=== PATIENT | male | born 1945 | race Hispanic/Latino ===

== ENCOUNTER 2017-11-15 14:40 | Emergency (ER) | payer MEDICARE, BC ==
[2017-11-15 15:54] VITALS: RESP 18; TEMP 98; O2SAT 95
[2017-11-15 16:11] VITALS: BMI 36.8
--- NOTE | 2017-11-15 16:38 | ED PDOC ---
Arrival/HPI - General Chief Complaint: Shortness Of Breath Time Seen by Provider: 11/15/17 15:50 Historian: Patient - History of Present Illness Narrative History of Present Illness (Text): 11/15/17 15:50 Fernando Harrington is a 72 year old male, whose past medical history includes COPD, who presents to the emergency department complaining of shortness of breath for a few days. Patient notes that symptoms are consistent with prior COPD episodes and experiences associated URI symptoms including cough, rhinorrhea, and subjective fever. Patient reports using his BiPAP and nebulizer last night to little relief. Patient denies any chest pain or any other complaints at this time. Time/Duration: 24 hours Symptom Onset: Gradual Symptom Course: Unchanged Activities at Onset: Light Context: Home Past Medical History - Provider Review Nursing Documentation Reviewed: Yes - Infectious Disease Hx of Infectious Diseases: None - Tetanus Immunization Tetanus Immunization: Up to Date - Cardiac Hx Pacemaker: No - Pulmonary Hx Asthma: Yes Hx Chronic Obstructive Pulmonary Disease (COPD): Yes Hx Sleep Apnea: Yes (uses c pap at home) - Neurological Hx Paralysis: No - HEENT Hx HEENT Disorder: No - Renal Hx Renal Disorder: No - Endocrine/Metabolic Hx Diabetes Mellitus Type 1: Yes (borderline DM) Hx Diabetes Mellitus Type 2: Yes (borderline DM) - Hematological/Oncological Hx Blood Transfusions: Yes (MANY YRS AGO) Hx Blood Transfusion Reaction: No Hx Hepatitis C: Yes - Integumentary Hx Dermatological Disorder: No - Musculoskeletal/Rheumatological Hx Musculoskeletal Disorders: Yes (r foot drop) - Gastrointestinal Hx Gastrointestinal Disorders: No - Genitourinary/Gynecological Hx Genitourinary Disorders: No - Psychiatric Hx Emotional Abuse: No Hx Physical Abuse: No 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) - Past Surgical History Past Surgical History: No Previous - Surgical History Other/Comment: spinal fusion - Anesthesia Hx Anesthesia Reactions: No Hx Malignant Hyperthermia: No - Suicidal Assessment Feels Threatened In Home Enviroment: No Family/Social History - Physician Review Nursing Documentation Reviewed: Yes Family/Social History: No Known Family HX Smoking Status: Former Smoker Hx Alcohol Use: Yes (ABUSE- SOBER 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) 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) Hx Substance Use Treatment: No Allergies/Home Meds Allergies/Adverse Reactions: Allergies No Known Allergies Allergy (Verified 11/15/17 16:04) Home Medications: Home Meds Medication Instructions Recorded Confirmed Albuterol 0.083% [Albuterol 0.083% 3 ml IH PRN PRN 09/24/12 11/11/15 Inhal Yessenia (2.5 mg/3 ml) UD] Budesonide/Formoterol Fumarate 1 puff INH BID 05/29/15 11/11/15 [Symbicort 160-4.5 Mcg Inhaler] Gabapentin [Neurontin] 600 mg PO TID 06/12/15 11/11/15 Tiotropium [place] Inhaler 1 inh INH QAM 06/12/15 11/11/15 [Spiriva Inhalation Handihaler Device] Ledipasvir/Sofosbuvir [Harvoni 1 tab PO QAM 11/02/15 11/11/15 90-400 mg Tablet] Metoprolol Tartrate 25 mg PO BID 11/02/15 11/11/15 Montelukast [Singulair] 10 mg PO QAM 11/02/15 11/11/15 Ribavirin [Rebetol] 400 mg PO BRKDIN 11/02/15 11/11/15 Albuterol Sulfate [Proair Hfa] 2 inhaler IH PRN PRN 11/08/15 11/11/15 DiphenhydrAMINE [Benadryl] 25 mg PO PRN PRN 11/08/15 11/11/15 Furosemide [Lasix] 40 mg PO DAILY 11/08/15 11/11/15 Review of Systems - Physician Review All systems were reviewed & negative as marked: Yes - Review of Systems Constitutional: Fevers Eyes: absent: Vision Changes ENT: Rhinorrhea. absent: Hearing Changes Respiratory: SOB, Cough Cardiovascular: absent: Chest Pain Gastrointestinal: absent: Abdominal Pain Genitourinary Male: absent: Dysuria, Frequency Musculoskeletal: absent: Arthralgias, Back Pain Skin: absent: Rash Neurological: absent: Headache Endocrine: absent: Diaphoresis Hemo/Lymphatic: absent: Adenopathy Psychiatric: absent: Anxiety, Depression Physical Exam Vital Signs Reviewed: Yes Vital Signs Temp Pulse Resp BP Pulse Ox 11/15/17 19:04 64 18 111/61 95 11/15/17 15:51 98.0 F 63 18 109/59 L 95 Temperature: Afebrile Blood Pressure: Hypotensive Pulse: Regular Respiratory Rate: Normal Appearance: Positive for: Well-Appearing, Non-Toxic, Comfortable Pain Distress: None Mental Status: Positive for: Alert and Oriented X 3 - Systems Exam Head: Present: Atraumatic, Normocephalic Pupils: Present: PERRL Extroacular Muscles: Present: EOMI Conjunctiva: Present: Normal Mouth: Present: Moist Mucous Membranes Neck: Present: Normal Range of Motion Respiratory/Chest: Present: Good Air Exchange, Wheezes (scant). No: Respiratory Distress Cardiovascular: Present: Regular Rate and Rhythm, Normal S1, S2. No: Murmurs Abdomen: No: Tenderness, Distention, Rebound, Guarding Upper Extremity: Present: Normal Inspection Lower Extremity: Present: Normal Inspection Neurological: Present: GCS=15, CN II-XII Intact, Speech Normal, Motor Func Grossly Intact, Normal Sensory Function, Gait Normal Skin: Present: Warm, Dry. No: Rashes Psychiatric: Present: Alert, Oriented x 3 Medical Decision Making ED Course and Treatment: Impression: 72 year old male complaining of shortness of breath for a few days. Differential Diagnosis included but are not limited to: Influenza vs. Pneumonia vs. COPD exacerbation Plan: -- EKG -- Labs -- Prednisone -- Reassess and disposition Prior Visits: Notes and results from previous visits were reviewed. Patient was last seen in the emergency department on 11/02/15 for chest pain. Patient was admitted to hospitalist care for further evaluation. Progress Notes: EKG shows sinus bradycardia at 59bpm with 1st degree AV block, incomplete RBBB, grossly unchanged from prior. 11/15/17 16:39 Chest X-ray: Creator : Jose Farfan MD FINDINGS: LUNGS:No evidence of new infiltrate or consolidation in the lungs. PLEURA:No significant pleural effusion identified, no pneumothorax apparent. CARDIOVASCULAR:The cardiac silhouette is prominent in size. OSSEOUS STRUCTURES:No significant abnormalities. VISUALIZED UPPER ABDOMEN:Normal. OTHER FINDINGS:None. IMPRESSION: No active disease. 11/15/17 20:19 Trop negative. Flu negative. Feels better after nebs and prednisone. He has no wheezing on reevaluation. Requesting dc with albuterol refill - Lab Interpretations Lab Results: 11/15/17 19:35 11/15/17 19:35 Lab Results 11/15/17 19:35: Sodium 138, Potassium 3.7, Chloride 102, Carbon Dioxide 24, Anion Gap 16, BUN 14, Creatinine 0.7 L, Est GFR ( Amer) > 60, Est GFR ( Non-Af Amer) > 60, Random Glucose 165 H, Calcium 9.1, Total Bilirubin 0.8, AST 46, ALT 59 H, Alkaline Phosphatase 51, Troponin I < 0.01, Total Protein 7.4, Albumin 4.4, Globulin 3.0, Albumin/Globulin Ratio 1.5 11/15/17 19:35: Influenza Typ A,B (EIA) Negative for flu a/b 11/15/17 19:35: WBC 6.2 D, RBC 4.96, Hgb 15.4, Hct 44.6, MCV 89.9, MCH 31.0, MCHC 34.5, RDW 13.6, Plt Count 86 L, MPV 10.2, Gran % 85.2 H, Lymph % (Auto) 10.1 L, Mcculloch % (Auto) 4.2, Eos % (Auto) 0.5 L, Baso % (Auto) 0.0, Gran # 5.24, Lymph # (Auto) 0.6 L, [place] # (Auto) 0.3, Eos # (Auto) 0.0, Baso # (Auto) 0.00 I have reviewed the lab results: Yes - RAD Interpretation Radiology Orders: 11/15/17 16:26 CHEST PORTABLE [RAD] Stat - Medication Orders Current Medication Orders: Discontinued Medications Albuterol/Ipratropium (Duoneb 3 Mg/0.5 Mg (3 Ml) Ud) 3 ml IH Q15M REGINE Stop: 11/15/17 17:01 Last Admin: 11/15/17 17:55 Dose: 3 ml Prednisone (Prednisone Tab) 60 mg PO STAT ONE Stop: 11/15/17 16:29 Last Admin: 11/15/17 16:44 Dose: 60 mg - Scribe Statement The provider has reviewed the documentation as recorded by the Isabella Montana Provider Scribe Attestation: All medical record entries made by the Scribe were at my direction and personally dictated by me. I have reviewed the chart and agree that the record accurately reflects my personal performance of the history, physical exam, medical decision making, and the department course for this patient. I have also personally directed, reviewed, and agree with the discharge instructions and disposition. Disposition/Present on Arrival - Present on Arrival Any Indicators Present on Arrival: No History of DVT/PE: No History of Uncontrolled Diabetes: No Urinary Catheter: No History of Decub. Ulcer: No History Surgical Site Infection Following: None - Disposition Have Diagnosis and Disposition been Completed?: Yes Diagnosis: COPD exacerbation Disposition: HOME/ ROUTINE Disposition Time: 20:19 Patient Plan: Discharge Patient Problems: Current Active Problems Problem Status Onset COPD exacerbation Acute Condition: GOOD Discharge Instructions (ExitCare): COPD (Chronic Obstructive Pulmonary Disease ) (ED) Additional Instructions: Follow-up with PMD within 2 days. Return to ED if condition worsens. Take full course of steroids. Use nebulizer every 6 hours as needed. Prescriptions: Albuterol 0.083% [Albuterol Sulfate 3 Ml] 3 ml IH Q6 #100 neb Prednisone 50 mg PO DAILY #3 tablet Referrals: Bronwyn Velázquez MD [Primary Care Provider] - Follow up with primary Forms: [facility] (Greek)
[2017-11-15] MEDS: Albuterol-Ipratrop 3 mg / 0.5 (3 ml) UD IH SCH ×3 (16:44→17:55)
--- NOTE | 2017-11-15 16:58 | RAD ---
HISTORY: shortness of breath COMPARISON: Comparison is made with 11/02/2025 FINDINGS: LUNGS: No evidence of new infiltrate or consolidation in the lungs. PLEURA: No significant pleural effusion identified, no pneumothorax apparent. CARDIOVASCULAR: The cardiac silhouette is prominent in size. OSSEOUS STRUCTURES: No significant abnormalities. VISUALIZED UPPER ABDOMEN: Normal. OTHER FINDINGS: None. IMPRESSION: No active disease.
[2017-11-15 19:04] VITALS: BP 111/61; PULSE 64
[2017-11-15 19:50] LABS: EOS % 0.5 % (1.5-5.0); GRAN # 5.24 (1.4-6.5); GRAN % 85.2 % (50.0-68.0); HEMOGLOBIN 15.4 g/dL (14.0-18.0); LYMPH # 0.6 (1.2-3.4); LYMPH % 10.1 % (22.0-35.0); MEAN CELL VOLUME 89.9 fl (80.0-105.0); MEAN CORPUSCULAR HGB CONC 34.5 g/dl (31.0-37.0); MEAN PLATELET VOLUME 10.2 fl (7.0-11.0); MONO # 0.3 (0.1-0.6); MONO % 4.2 % (1.0-6.0); RBC 4.96 10^6/uL (3.5-6.1); RED CELL DISTRIBUTION WIDTH 13.6 % (11.5-14.5); WHITE BLOOD COUNT 6.2 10^3/ul (4.5-11.0)
[2017-11-15 20:06] LABS: ALB/GLOB RATIO 1.5 (1.1-1.8); ALBUMIN 4.4 g/dL (3.0-4.8); ALT/SGPT 59 U/L (7-56); AST/SGOT 46 U/L (17-59); BLOOD UREA NITROGEN 14 mg/dL (7-21); CALCIUM 9.1 mg/dL (8.4-10.5); GFR AFRICAN-AMERICAN > 60; GFR NON-AFRICAN AMERICAN > 60
[2017-11-15 20:16] LABS: TROPONIN I < 0.01 ng/mL
--- NOTE | 2017-11-16 10:04 | CARD ---
APPROVED REPORT EKG Measurement Heart [id number] <Conclusion> Sinus bradycardia with 1st degree AV block Incomplete right bundle branch block No change
== END 2017-11-15 21:40 | disposition home or self-care (01) ==
LOC: ED 14:40
DX: J44.1 Chronic obstructive pulmonary disease with (acute) exacerbation (principal); Z87.891 Personal history of nicotine dependence

== ENCOUNTER 2019-02-08 13:38 | Outpatient (CLI) | payer MEDICARE, BC | END 2019-02-08 13:39 | disposition home or self-care (01) | LOC: RAD 13:38 | DX: G62.9 Polyneuropathy, unspecified (principal); G93.2 Benign intracranial hypertension; I10 Essential (primary) hypertension ==